=== PATIENT | female | born 1950 | race Caucasian/White ===

== ENCOUNTER 2020-12-08 19:17 | Emergency (ER) | payer MEDICARE, BC ==
--- NOTE | 2020-12-08 20:11 | EDM.PDOC ---
ED HPI GENERAL MEDICAL PROBLEM - General Chief Complaint: Genitourinary Problem Stated Complaint: BLADDER INFECTION Time Seen by Provider: 12/08/20 19:34 Source of Information: Reports: Patient, RN History Limitations: Reports: No Limitations - History of Present Illness INITIAL COMMENTS - FREE TEXT/NARRATIVE: chief complaint: bladder infection This is a 70 year old female presents to the ER for bladder infection. She started to have symptoms 2 days ago- urinary pain, urgency, retention, leakage, low back pain, low pelvic pain and intermittent diarrhea. denies any vaginal pain, fever, chills, nausea, vomiting. reports recurrent bladder infection Onset: Gradual Onset Date: 12/06/20 Duration: Getting Worse Location: Reports: Abdomen Quality: Reports: Same as Previous Episode Severity: Moderate Improves with: Reports: None Worsens with: Reports: None Associated Symptoms: Reports: Malaise Treatments [employer]: Reports: Home Treatments (cranberry juice) - Related Data Allergies Allergy/AdvReac Type Severity Reaction Status Date / Time acetaminophen Allergy Vomiting Verified 12/08/20 19:55 [From Darvocet-N] meperidine [From Demerol] Allergy Vomiting Verified 12/08/20 19:55 propoxyphene Allergy Vomiting Verified 12/08/20 19:55 [From Darvocet-N] Home Meds: Home Meds Oxybutynin Chloride [Oxybutynin Chloride ER] 10 mg PO DAILY 12/08/20 [History] Potassium Chloride [Klor-Con 10] 10 meq PO DAILY 12/08/20 [History] hydroCHLOROthiazide [Hydrochlorothiazide] 25 mg PO DAILY 12/08/20 [History] oxyCODONE HCl/Acetaminophen [Oxycodone-Acetaminophen 5-325] 1 - 2 tab PO Q8H PRN 12/08/20 [History] ED ROS GENERAL - Review of Systems Review Of Systems: See Below Constitutional: Reports: Fatigue HEENT: Reports: No Symptoms, Glasses Respiratory: Reports: No Symptoms Cardiovascular: Reports: No Symptoms Endocrine: Reports: No Symptoms GI/Abdominal: Reports: Abdominal Pain, Diarrhea : Reports: Dysuria, Frequency, Incontinence, Pain, Urgency, Urinary Retention Musculoskeletal: Reports: Back Pain (has chronic back pain - but pain is a little worse today) Skin: Reports: No Symptoms Neurological: Reports: No Symptoms Hematologic/Lymphatic: Reports: No Symptoms Immunologic: Reports: No Symptoms ED EXAM, GI/ABD - Physical Exam Exam: See Below Exam Limited By: No Limitations General Appearance: Alert, WD/WN, No Apparent Distress Eyes: Bilateral: Normal Appearance, EOMI Ears: Normal External Exam Nose: Normal Inspection Throat/Mouth: Normal Inspection, Normal Lips Head: Atraumatic, Normocephalic Neck: Normal Inspection, Supple, Non-Tender, Full Range of Motion Respiratory/Chest: No Respiratory Distress, Lungs Clear, Normal Breath Sounds, No Accessory Muscle Use, Chest Non-Tender Cardiovascular: Normal Peripheral Pulses, Regular Rate, Rhythm, No Edema, No Gallop, No Murmur, No Rub GI/Abdominal Exam: Normal Bowel Sounds, Soft, Tender (mild tenderness low pelvis) (Female) Exam: Deferred Rectal (Female) Exam: Deferred Extremities: Normal Inspection Neurological: Alert, Oriented, CN II-XII Intact, Normal Cognition, Normal Gait, Normal Reflexes, No Motor/Sensory Deficits Psychiatric: Normal Affect Skin Exam: Warm, Dry, Intact, Normal Color, No Rash Lymphatic: No Adenopathy Course - Vital Signs Last Recorded V/S: Last Vital Signs Temp 97.4 F 12/08/20 19:51 Pulse 99 12/08/20 19:51 Resp 16 12/08/20 19:51 BP 151/100 H 12/08/20 19:51 Pulse Ox 95 12/08/20 19:51 - Orders/Labs/Meds Orders: Active Orders 24 hr Category Date Time Status CULTURE URINE [RM] Stat Lab 12/08/20 19:46 Received Labs: Laboratory Tests 12/08/20 Range/Units 19:35 Urine Color [place] A (YELLOW) Urine Appearance Clear (CLEAR) Urine pH 6.5 (5.0-8.0) Ur Specific [place] 1.015 (1.008-1.030) Urine Protein Negative (NEGATIVE) mg/dL Urine Glucose (UA) 100 H (NEGATIVE) mg/dL Urine Ketones Negative (NEGATIVE) mg/dL Urine Occult Blood Negative (NEGATIVE) Urine Nitrite Positive H (NEGATIVE) Urine Bilirubin Negative (NEGATIVE) Urine Urobilinogen 1.0 (0.2-1.0) EU/dL Ur Leukocyte Esterase Negative (NEGATIVE) Urine RBC 0-5 (0-5) Urine WBC 0-5 (0-5) Ur Epithelial Cells Rare Amorphous Sediment Rare Urine Bacteria Rare Urine Mucus Rare Urinalysis Comment See note - Re-Assessments/Exams Free Text/Narrative Re-Assessment/Exam: 12/08/20 20:17 discussed urine sample with positive nitrates will treat for bladder infection- advised to start medications tonight urine culture pending advise of symptoms to return to ER -nausea, vomiting, fever, chills, increased pain or any concerns or not improved advised to rest, push fluids, and take medications as advised she agrees with plan of care Departure - Departure Time of Disposition: 20:20 Disposition: Home, Self-Care 01 Condition: Good Clinical Impression: UTI, Urinary tract infectious disease - Discharge Information *PRESCRIPTION DRUG MONITORING PROGRAM REVIEWED*: Not Applicable *COPY OF PRESCRIPTION DRUG MONITORING REPORT IN PATIENT [place]: Not Applicable Instructions: Urinary Tract Infection, Adult, [id number] Referrals: PCP,None [Primary Care Provider] - Forms: ED Department Discharge Care Plan Goals: Urinary Tract Infection/Bladder infection -start tonight Keflex 500mg one in morning and evening til all gone -Pyridium 200mg take one tablet 4 times a day as needed for bladder pain -push fluids -rest -return to ER for any increased pain, fever, chills, nausea, vomiting, rash or not improved Sepsis Event Note (ED) - Evaluation Sepsis Screening Result: No Definite Risk - Focused Exam Vital Signs: Vital Signs Temp Pulse Resp BP Pulse Ox 12/08/20 19:51 97.4 F 99 16 151/100 H 95 12/08/20 19:47 97.4 F 99 16 151/100 H 95 - Problem List & Annotations (1) UTI, Urinary tract infectious disease SNOMED Code(s): 32220468 Code(s): N39.0 - URINARY TRACT INFECTION, SITE NOT SPECIFIED Status: Acute Priority: High Current Visit: Yes - Problem List Review Problem List Initiated/Reviewed/Updated: Yes - My Orders Last 24 Hours: My Active Orders 12/08/20 19:46 CULTURE URINE [RM] Stat - Assessment/Plan Last 24 Hours: My Active Orders 12/08/20 19:46 CULTURE URINE [RM] Stat Assessment:: Urinary Tract Infection/Bladder infection -start tonight Keflex 500mg one in morning and evening til all gone -Pyridium 200mg take one tablet 4 times a day as needed for bladder pain -urine culture is pending -push fluids -rest -return to ER for any increased pain, fever, chills, nausea, vomiting, rash or not improved
== END 2020-12-08 20:43 | disposition home or self-care (01) ==
LOC: JP.ED 19:17
DX: N39.0 Urinary tract infection, site not specified (principal); Z88.8 Allergy status to other drugs, medicaments and biological substances
CPT/HCPCS: 81001; 87086; 99284

== ENCOUNTER 2024-01-14 16:48 | Inpatient (IN) | payer MEDICARE, BC ==
[2024-01-14 18:23] LABS: BASOPHILS ABSOLUTE AUTO 0.06 K/uL (0.00-0.10); BASOPHILS PERCENT AUTO 0.4 % (0.1-1.3); EOSINOPHILS ABSOLUTE AUTO 0.01 K/uL (0.00-0.40); EOSINOPHILS PERCENT AUTO 0.1 % (0.0-5.4); HEMATOCRIT 39.7 % (34.3-46.0); HEMOGLOBIN 13.5 g/dL (11.2-15.5); IMMATURE GRAN PERCENT AUTO 0.7 % (0.0-0.7); LYMPHOCYTES ABSOLUTE AUTO 1.05 K/uL (0.8-3.3); LYMPHOCYTES PERCENT AUTO 7.1 % (11.4-47.7); MEAN CORPUSCULAR VOLUME 91.3 fL (81.4-99.0); MONOCYTES ABSOLUTE AUTO 0.96 K/uL (0.20-0.90); MONOCYTES PERCENT AUTO 6.5 % (3.3-12.6); NEUTROPHILS ABSOLUTE AUTO 12.58 K/uL (1.0-7.6); NEUTROPHILS PERCENT AUTO 85.2 % (40.0-78.1); PLATELET COUNT,PLT 303 K/uL (130-375); RED BLOOD CELL COUNT 4.35 M/uL (3.77-5.24); WHITE BLOOD CELL COUNT,WBC 14.8 K/uL (3.2-11.0)
[2024-01-14] MEDS: Sodium Chloride 0.9% 1,000 ML IV ONE ×2 (18:42→21:23)
[2024-01-14 18:43] LABS: A/G RATIO 1.1 (1.2-2.2); ALANINE AMINOTRANSFERASE,ALT 16 U/L (12-78); ALBUMIN 3.6 g/dL (3.4-5.0); ALKALINE PHOSPHATASE 77 U/L (46-116); ANION GAP 13.8 mmol/L (5.0-14.0); ASPARTATE AMNIOTRANSFERASE,AST 18 U/L (15-37); BILIRUBIN TOTAL 0.8 mg/dL (0.2-1.0); BLOOD UREA NITROGEN,BUN 22 mg/dL (7-18); C-REACTIVE PROTEIN 2.41 mg/dL (<0.50); CALCIUM 9.9 mg/dL (8.5-10.1); CARBON DIOXIDE,CO2 26 mmol/L (21-32); CHLORIDE,CL 104 mmol/L (100-108); CREATININE 2.2 mg/dL (0.6-1.0); ESTIMATED GFR 23 mL/min (>60); GLUCOSE RANDOM 154 mg/dL (74-106); POTASSIUM,K 3.6 mmol/L (3.6-5.2); SODIUM,NA 144 mmol/L (140-148)
[2024-01-14] MEDS: Sodium Chloride 0.9% 10 ML Syringe FLUSH PRN (18:56)
[2024-01-14] MEDS: Ondansetron 4 MG/2 ML SDV IVPUSH ONE (18:56)
[2024-01-14] MEDS: Sodium Chloride 0.9% 80 ML IV SCH (21:07)
[2024-01-14] MEDS: Iopamidol 755 Mg/ML 100 ML Bottle IV SCH (21:07)
[2024-01-14] MEDS ORDERED: Naloxone 0.4 MG/ML SDV IVPUSH PRN (21:13)
[2024-01-14] MEDS: HYDROmorphone 0.5 MG/0.5 ML Syringe IVPUSH ONE ×2 (21:22→23:16)
[2024-01-14] MEDS: Prochlorperazine 10 MG/2 ML SDV IVPUSH ONE (21:22)
[2024-01-14 21:33] LABS: LACTIC ACID 1.7 mmol/L (0.4-2.0)
[2024-01-15] MEDS: cefTRIAXone 2 GM in Sodium Chloride 0.9% 50 ML IV ONE (00:37)
[2024-01-15 01:39] LABS: APPEARANCE,URINE CLEAR (CLEAR); BILIRUBIN,URINE NEGATIVE (NEGATIVE); COLOR,URINE YELLOW (YELLOW); GLUCOSE,URINE NEGATIVE (NEGATIVE); KETONES,URINE NEGATIVE (NEGATIVE); LEUKOCYTE ESTERASE,URINE NEGATIVE (NEGATIVE); NITRITE,URINE POSITIVE (NEGATIVE); OCCULT BLOOD,URINE TRACE-INTACT (NEGATIVE); PROTEIN,URINE NEGATIVE (NEGATIVE); UROBILINOGEN,URINE 0.2 EU/dL (0.2-1.0)
[2024-01-15] MEDS: metroNIDAZOLE/Normal Saline 500 MG in Premix Bag 1 BAG IV ONE (01:39)
[2024-01-15] MEDS: Sodium Chloride 0.9% 1,000 ML IV SCH ×2 (01:40→18:21)
[2024-01-15] MEDS: Ondansetron 4 MG/2 ML SDV IV PRN (02:23)
[2024-01-15] MEDS: HYDROmorphone 0.5 MG/0.5 ML Syringe IVPUSH PRN (02:23)
[2024-01-15] MEDS: LORazepam 2 MG/ML SDV IV PRN (02:32)
[2024-01-15] MEDS: Pantoprazole 40 MG Vial IVPUSH SCH ×2 (03:20→11:11)
[2024-01-15 03:29] LABS: AMORPHOUS SEDIMENT,URINE NOT SEEN; BACTERIA,URINE FEW; EPITHELIAL CELLS,URINE RARE; MUCUS,URINE NOT SEEN; RBC,URINE 0-5 (0-5); WBC,URINE 0-5 (0-5)
[2024-01-15 05:35] LABS: BASOPHILS ABSOLUTE AUTO 0.05 K/uL (0.00-0.10); BASOPHILS PERCENT AUTO 0.4 % (0.1-1.3); EOSINOPHILS ABSOLUTE AUTO 0.05 K/uL (0.00-0.40); EOSINOPHILS PERCENT AUTO 0.4 % (0.0-5.4); HEMATOCRIT 32.6 % (34.3-46.0); HEMOGLOBIN 10.8 g/dL (11.2-15.5); IMMATURE GRAN ABSOLUTE AUTO 0.07 K/uL (0.00-0.23); IMMATURE GRAN PERCENT AUTO 0.6 % (0.0-0.7); LYMPHOCYTES ABSOLUTE AUTO 1.22 K/uL (0.8-3.3); LYMPHOCYTES PERCENT AUTO 9.9 % (11.4-47.7); MEAN CORPUSCULAR HEMOGLOBIN 30.8 pg (31.6-35.5); MEAN CORPUSCULAR HGB CONC 33.1 g/dL (31.6-35.5); MEAN CORPUSCULAR VOLUME 92.9 fL (81.4-99.0); MONOCYTES ABSOLUTE AUTO 0.92 K/uL (0.20-0.90); MONOCYTES PERCENT AUTO 7.5 % (3.3-12.6); NEUTROPHILS ABSOLUTE AUTO 10.03 K/uL (1.0-7.6); NEUTROPHILS PERCENT AUTO 81.2 % (40.0-78.1); PLATELET COUNT,PLT 218 K/uL (130-375); RED BLOOD CELL COUNT 3.51 M/uL (3.77-5.24); WHITE BLOOD CELL COUNT,WBC 12.3 K/uL (3.2-11.0)
[2024-01-15 05:51] LABS: ALANINE AMINOTRANSFERASE,ALT 14 U/L (12-78); ALBUMIN 2.8 g/dL (3.4-5.0); ALKALINE PHOSPHATASE 61 U/L (46-116); ASPARTATE AMNIOTRANSFERASE,AST 17 U/L (15-37); BILIRUBIN TOTAL 0.5 mg/dL (0.2-1.0); BLOOD UREA NITROGEN,BUN 19 mg/dL (7-18); CALCIUM 8.3 mg/dL (8.5-10.1); CARBON DIOXIDE,CO2 27 mmol/L (21-32); CHLORIDE,CL 109 mmol/L (100-108); CREATININE 2.1 mg/dL (0.6-1.0); EST CRCL DRUG DOSING (CG) 20.33 mL/min; ESTIMATED GFR 25 mL/min (>60); GLUCOSE RANDOM 139 mg/dL (74-106); POTASSIUM,K 3.8 mmol/L (3.6-5.2); PROTEIN TOTAL,TP 5.7 g/dL (6.4-8.2); SODIUM,NA 145 mmol/L (140-148)
[2024-01-15 05:53] LABS: ANION GAP 12.8 mmol/L (5.0-14.0)
[2024-01-15] MEDS ORDERED: FLU (Fluad Triv) TS24-25 (65UP)/MF59C/PF 45 MCG/0.5 ML Syringe IM ONE (09:00)
[2024-01-15] MEDS ORDERED: Dexamethasone 4 MG/ML SDV ONE (10:48)
[2024-01-15] MEDS ORDERED: Ondansetron 4 MG/2 ML SDV ONE (10:48)
[2024-01-15] MEDS ORDERED: Succinylcholine 200 MG/10 ML MDV ONE (10:48)
[2024-01-15] MEDS ORDERED: Neostigmine Methylsulfate 10 MG/10 ML MDV ONE (10:48)
[2024-01-15] MEDS ORDERED: Glycopyrrolate 0.2 MG/ML 5 ML MDV ONE (10:48)
[2024-01-15] MEDS ORDERED: Propofol 200 MG/20 ML SDV ONE (10:48)
[2024-01-15] MEDS ORDERED: Rocuronium 50 MG/5 ML Vial ONE (10:48)
[2024-01-15] MEDS ORDERED: fentaNYL 250 MCG/5 ML SDV ONE ×2 (10:50→13:21)
[2024-01-15] MEDS: Piperacillin/Tazobactam/Dext 4.5 GM in Premix Bag 1 BAG IV ONE (11:17)
[2024-01-15] MEDS: Bupivacaine 0.5%/EPINEPHrine 1:200,000 50 ML MDV ONE (13:37)
[2024-01-15] MEDS ORDERED: Lactated Ringers 1,000 ML ONE (13:48)
[2024-01-15] MEDS: Ropivacaine 40 ML, dexAMETHasone 8 MG, EPINEPHrine 0.4 MG, Sodium Chloride 0.9% 37.6 ML NERVRT SCH (13:52)
[2024-01-15] MEDS ORDERED: fentaNYL 100 MCG/2 ML SDV IVPUSH PRN (14:08)
[2024-01-15] MEDS: hydrOXYzine HCL 100 MG/2 ML SDV IM ONE (14:12)
[2024-01-15] MEDS: fentaNYL 50 MCG/ML SDV IVPUSH ONE (14:13)
[2024-01-15] MEDS ORDERED: hydrOXYzine HCL 100 MG/2 ML SDV IM PRN (14:24)
[2024-01-15] MEDS: Piperacillin/Tazobactam/Dext 4.5 GM in Premix Bag 1 BAG IV SCH (15:07)
[2024-01-15] MEDS: Acetaminophen/HYDROcodone 325-5 MG Tab PO PRN (19:40)
[2024-01-15] MEDS ORDERED: Pantoprazole 40 MG Vial IVPUSH SCH (21:00)
[2024-01-16 06:05] LABS: HEMOGLOBIN 10.2 g/dL (11.2-15.5); MEAN CORPUSCULAR HEMOGLOBIN 30.9 pg (31.6-35.5); MEAN CORPUSCULAR HGB CONC 32.9 g/dL (31.6-35.5); MEAN CORPUSCULAR VOLUME 93.9 fL (81.4-99.0); RED BLOOD CELL COUNT 3.3 M/uL (3.77-5.24); WHITE BLOOD CELL COUNT,WBC 16.8 K/uL (3.2-11.0)
[2024-01-16 06:09] LABS: ANION GAP 9.7 mmol/L (5.0-14.0); CALCIUM 8.1 mg/dL (8.5-10.1); CREATININE 1.4 mg/dL (0.6-1.0); EST CRCL DRUG DOSING (CG) 30.49 mL/min; POTASSIUM,K 3.6 mmol/L (3.6-5.2)
[2024-01-16] MEDS: Sodium Chloride 0.9% 10 ML Syringe FLUSH STA (08:19)
[2024-01-16] MEDS: Sodium Chloride 0.9% 100 ML IV STA (08:19)
[2024-01-16] MEDS: Iopamidol 755 Mg/ML 100 ML Bottle IV STA (08:19)
[2024-01-16] MEDS: Sennosides/Docusate Sodium 50-8.6 MG Tab PO PRN (10:56)
[2024-01-16] MEDS: Benzonatate 100 MG Cap PO PRN (14:00)
[2024-01-16] MEDS: Benzocaine/Cetylpyridinium/Menthol Lozenge MUCMEM PRN ×2 (19:49→19:52)
[2024-01-17 05:20] LABS: CALCIUM 8.4 mg/dL (8.5-10.1); CREATININE 1.1 mg/dL (0.6-1.0); EST CRCL DRUG DOSING (CG) 38.8 mL/min; POTASSIUM,K 3.1 mmol/L (3.6-5.2)
[2024-01-17 05:30] LABS: HEMATOCRIT 32.1 % (34.3-46.0); HEMOGLOBIN 10.5 g/dL (11.2-15.5); MEAN CORPUSCULAR HEMOGLOBIN 30.7 pg (31.6-35.5); MEAN CORPUSCULAR HGB CONC 32.7 g/dL (31.6-35.5); MEAN CORPUSCULAR VOLUME 93.9 fL (81.4-99.0); RED BLOOD CELL COUNT 3.42 M/uL (3.77-5.24); WHITE BLOOD CELL COUNT,WBC 11.1 K/uL (3.2-11.0)
[2024-01-17 05:41] LABS: ANION GAP 12.1 mmol/L (5.0-14.0)
[2024-01-17] MEDS ORDERED: FLU (Fluad Triv) TS24-25 (65UP)/MF59C/PF 45 MCG/0.5 ML Syringe IM ONE (09:00)
[2024-01-17] MEDS: Potassium Chloride 20 MEQ Tab.ER PO ONE (09:56)
[2024-01-17] MEDS: guaiFENesin/Dextromethorphan 100-10 MG/5 ML Soln 10 ML Cup PO PRN (12:31)
[2024-01-17] MEDS: Ondansetron 4 MG Tab.DIS PO PRN (17:27)
[2024-01-17] MEDS: Melatonin 3 MG Tab PO PRN (19:20)
[2024-01-18 04:56] LABS: HEMATOCRIT 32.7 % (34.3-46.0); HEMOGLOBIN 10.6 g/dL (11.2-15.5); MEAN CORPUSCULAR HEMOGLOBIN 30.3 pg (31.6-35.5); MEAN CORPUSCULAR HGB CONC 32.4 g/dL (31.6-35.5); MEAN CORPUSCULAR VOLUME 93.4 fL (81.4-99.0); RED BLOOD CELL COUNT 3.5 M/uL (3.77-5.24); WHITE BLOOD CELL COUNT,WBC 7.9 K/uL (3.2-11.0)
[2024-01-18 05:16] LABS: CALCIUM 8.7 mg/dL (8.5-10.1); EST CRCL DRUG DOSING (CG) 42.68 mL/min; POTASSIUM,K 3.5 mmol/L (3.6-5.2)
[2024-01-18 05:19] LABS: ANION GAP 10.5 mmol/L (5.0-14.0)
[2024-01-18] MEDS: FLU (Fluad Triv) TS24-25 (65UP)/MF59C/PF 45 MCG/0.5 ML Syringe IM ONE (08:59)
[2024-01-18] MEDS: Potassium Chloride 20 MEQ Tab.ER PO ONE (08:59)
[2024-01-19] MEDS: Acetaminophen 325 MG Tab PO PRN (00:46)
[2024-01-19] MEDS: Cyclobenzaprine 10 MG Tab PO PRN (02:50)
== END 2024-01-19 12:10 | disposition home or self-care (01) | DRG 357 ==
LOC: JP.ED 16:48 → JP.MS 01-15 00:29
PROVIDERS: ADMIT Internal Medicine; ATTEND Surgery
PROC: 0W9G4ZZ Drainage of Peritoneal Cavity, Percutaneous Endoscopic Approach (ICD-10-PCS; principal; 2024-01-15 12:00)
DX: K66.1 Hemoperitoneum (principal); D62 Acute posthemorrhagic anemia; R18.8 Other ascites; I10 Essential (primary) hypertension; G89.29 Other chronic pain; F32.A Depression, unspecified; M54.9 Dorsalgia, unspecified; D73.5 Infarction of spleen; J45.909 Unspecified asthma, uncomplicated; H54.7 Unspecified visual loss; F41.9 Anxiety disorder, unspecified; R19.7 Diarrhea, unspecified; Z88.5 Allergy status to narcotic agent; Z98.1 Arthrodesis status; Z88.8 Allergy status to other drugs, medicaments and biological substances; Z85.3 Personal history of malignant neoplasm of breast; Z90.11 Acquired absence of right breast and nipple; Z79.899 Other long term (current) drug therapy
CPT/HCPCS: 36415; 70450; 74174; 74176; 80053; 83605; 83690; 85025; 86140; 96361; 96374; 96375; 96376; 99285 ×2; J0780; J1171 ×2; J2405; J3490 ×2; J7030 ×2; Q9967; 00790-QZ; 80048; 81001; 83735; 85018; 85027; 87070; 87075; 87205; 87493; 90653; 99222; 99232; 99238; A9270-GY; G0008; J0171; J0330; J0696; J1100; J1596; J1836; J2060; J2470; J2543; J2704; J2710; J2795; J3010; J3370; J3410; J7050; J7120; Q0162